=== PATIENT | female | born 1985 | race Caucasian/White ===

== ENCOUNTER 2023-12-25 20:18 | Emergency (ER) | payer MEDICAID ==
[~2023-12-25] VITALS: Ht 162.6 cm; Wt 73.5 kg
[2023-12-25 20:56] VITALS: BP 115/77; PULSE 91; RESP 16; TEMP 98.6; O2SAT 98
[2023-12-25] MEDS ORDERED: KETOROLAC 30 MG/ML VIAL IM ONE (21:15)
[2023-12-25] MEDS ORDERED: CYCL-711 PO (22:50)
[2023-12-25] MEDS ORDERED: NAPR-54 PO (22:50)
== END 2023-12-25 23:20 | disposition home or self-care (01) ==
LOC: MED 20:18
DX: M79.662 Pain in left lower leg (principal); Z79.899 Other long term (current) drug therapy
CPT/HCPCS: 73552; 81025; 96372; 99283; J1885